=== PATIENT | female | born 1995 | race Caucasian/White ===

== ENCOUNTER 2022-04-24 19:08 | Emergency (ER) | payer MEDICAID, SELFPAY ==
[2022-04-24 19:08] VITALS: BP 128/78; PULSE 98; RESP 16; TEMP 36.6; O2SAT 99; BMI 23.0
--- NOTE | 2022-04-24 19:32 | US_ITS ---
EXAM: US PELVIS TRANSVAGINAL AND US DUPLEX ARTERIAL/VENOUS OF THE PELVIS, COMPLETE CLINICAL INDICATION: LLQ PAIN TECHNIQUE: Transvaginal pelvic ultrasound was performed with grayscale imaging. Transvaginal imaging was used for better evaluation of the endometrium and adnexa. Real-time duplex ultrasound scan of the arterial and venous flow of the pelvis with color Doppler flow and spectral waveform analysis. This report was created using [employer] report generation technology. COMPARISON: None. FINDINGS: UTERUS/CERVIX: Unremarkable. Anteverted. There is no uterine mass. The uterus measures 8.9 x 3.5 x 5.3 cm. The endometrial stripe measures 0.9 cm in thickness. RIGHT OVARY: Unremarkable. There is normal arterial inflow and venous outflow present in the right ovary. The right ovary measures 4.0 x 2.0 x 1.9 cm. LEFT OVARY: Collapsing follicle measuring 2.3 cm left ovary. There is normal arterial inflow and venous outflow present in the left ovary. The left ovary measures 4.0 x 2.7 x 3.1 cm. FREE FLUID: None. BLADDER: Empty bladder which cannot be evaluated with this probe. US/Transvaginal Non- IMPRESSION: Collapsing follicle measuring 2.3 cm left ovary. Electronically Signed: Tony Varghese MD at 21:16 EDT ,
--- NOTE | 2022-04-24 19:33 | EDS_ITS ---
HPI HPI - Female History of Present Illness Chief Complaint: Abd Pain Detail of Chief Complaint: Pelvic and suprapubic pain. Informant: patient Pain Pain: Positive for Pelvic Pain Onset: Today, Yesterday and Days Context: Gradual Onset Timing: Intermittent Quality: Positive for Cramping Current Severity: Mild Maximum Severity: Mild Bleeding Issue: Negative for Vaginal bleeding, Passing clots or Passing tissue Associated Symptoms Associated Symptoms: Negative for Dysuria, Frequency, Urgency, Hematuria, Missed Period or Irregular Period Test: Positive P: 3 Ab: 1 Narrative Narrative: 26-year-old female G4, P3 Ab1 with having a miscarriage. There is no past medical history. Prior C-sections. No significant abdominal or pelvic surgeries. States that since Thursday she has had intermittent pelvic and s uprapubic pain. Denies any other symptoms. No nausea, vomiting or diarrhea. No fever or chills. No dysuria. No vaginal bleeding or discharge. Her last menstrual period was April and prior to that it was the first week of March. She has never had an ovarian cyst but they run in her family according to her. Prior similar symptoms: No Recent Illness/Hospitalization: No PFSH PFSH Medical History no medical history no medical history Home Medications loratadine-pseudoephedrine ER 10 mg-240 mg tablet,extended [id number] (Claritin-D 24 Hour) tab PO 04/24/22 [History Last Taken Unknown] Allergy/AdvReac Type Severity Reaction Status Date / Time No Known Allergies Allergy Verified 04/24/22 19:10 Social History Smoking Status: Never smoker ROS ROS ED ROS Narrative Pelvic pain Review of Systems ROS Unobtainable: Denies due to encephalopathy Constitutional Constitutional ED: Denies chills Eyes Eyes: Denies blurry vision ENT ENT ED: Denies ear pain Cardiovascular Cardiovascular: Denies chest pain Gastrointestinal Gastrointestinal: Reports abdominal pain Genitourinary Genitourinary ED: Denies dysuria Musculoskeletal Musculoskeletal: Denies arthralgias Integumentary Denies abscess Neurologic Neurologic: Denies headache(s) Psychiatric Psychiatric: Denies anxiety Endocrine Endocrinology: Denies heat intolerance Hematologic/Lymphatic Hematologic/Lymphatic: Denies easy bleeding Allergic/Immunologic Allergic/Immunologic ED: Denies mouth swelling EXAM Physical Exam Narrative Exam Narrative: 26-year-old female no acute distress. Vital signs stable afebrile. HEENT exam normal. Lungs are clear. Heart regular rhythm. Abdomen soft nondistended normal bowel sounds no peritoneal signs. Suprapubic tenderness. Back nontender. Moving all 4 extremities. Neurologic exam normal. Const Vital Signs: 04/24/22 19:08 04/24/22 21:39 Temperature 97.8 F 97.7 F L Temperature Source Temporal Temporal Pulse Rate 98 Respiratory Rate 16 15 Blood Pressure 128/78 H 122/74 H Blood Pressure Mean 94 90 Pulse Ox 99 97 Oxygen Delivery Method Room Air Positive well nourished and well developed; Negative for obese, cachectic, contractures or unkempt General Appearance ED: well developed; Negative for unkempt, cachectic or contractures Nutritional Appearance: Negative for cachectic or obese HEENT Reports moist mucous membranes Negative for trauma or tenderness Eyes PERRL and EOMs intact bilaterally General Eye ED: Negative for pale conjunctiva Neck no lymphadenopathy, supple and no JVD Thyroid: Negative for tender Lymph Lymphatic: Negative for other Chest Wall inspection of chest normal and palpation of chest normal Resp normal respiratory effort and clear to auscultation bilaterally Effort and Inspection: Negative for pain with movement Auscultation: Negative for rales, rhonchi or wheezes Cardio regular rate, regular rhythm, S1 normal heart sound, no murmurs and no JVD Rate: Negative for bradycardia Rhythm: Negative for abnormal rhythm GI normal to inspection, nondistended, normoactive bowel sounds, soft to palpation, non-distended and no masses; Negative for non-tender Auscultation: normoactive bowel sounds Palpation: tender; Negative for guarding, rigid, hepatomegaly, splenomegaly or mass Back/Spine no CVA tenderness General Back: Negative for CVA tenderness Cervical Spine: Negative for cervical spine tenderness Thoracic Spine / Upper Back: Negative for thoracic spinal tenderness Lumbar Spine / Lower Back: Negative for lumbar spinal tenderness Sacrum: Negative for other Extremity normal to inspection and full ROM General Extremety ED: Negative for edema General Extremity: Negative for edema Neuro oriented x3 Sensorium / Orientation: alert and oriented to person; Negative for oriented to place, oriented to time, confused, lethargic or stuporous Motor Exam: strength 5/5 throughout Psych mental status grossly normal Appearance: Negative for unkempt Attitude: No agitated Speech: No other Mood & Affect: Negative for depressed Skin no rashes or lesions noted and no wounds General Skin Exam: Negative for jaundice Rashes: No rashes noted Trauma: Negative for other MDM MDM MDM Narrative Medical decision making narrative: 26-year-old female with pelvic pain. Exam benign. Urinalysis and urine test will be obtained. Clinically unable to get a UTI. I think unlikely she is with a last menstrual period 2 weeks ago. It may be an ovarian cyst. Ultrasound being obtained. She is not having any bleeding or discharge at home think she needs a pelvic exam at this time. She did not want anything for pain. Repeat exam patient doing well at 10:45 PM. Abdomen is benign. No hernia. She and I discussed her test results. She will be discharged to home. She recently moved up here from another part of the [facility] and she will be referred to a primary care physician if not improving for further evaluation. Lab Data Attestation: I reviewed the patient's lab results. Lab results narrative: Urinalysis negative no infection no white cells or nitrates. negative. Ultrasound showed a collapsing follicle on the left at 2.3 cm. Labs: Laboratory Results - last 24 hr 04/24/22 19:30 Urine Color Straw Urine Clarity Clear Urine pH 6.5 Ur Specific Tebbetts 1.010 Urine Protein Negative Urine Glucose (UA) Normal Urine Ketones Negative Urine Occult Blood Negative Urine Nitrite Negative Urine Bilirubin Negative Urine Urobilinogen Normal Ur Leukocyte Esterase Negative Urine RBC 0 SEEN Urine WBC 0-5 SEEN Ur Squamous Epith Cells 0 SEEN Urine Bacteria 1+ Urine Mucus 0 SEEN Urine Test Negative Radiography Diagnostic Testing: Clinical Impression(s) from Imaging Studies Transvaginal US 04/24/22 19:32 IMPRESSION: Collapsing follicle measuring 2.3 cm left ovary. Electronically Signed: Tony Varghese MD at 21:16 EDT , Discharge Plan Triage Chief Complaint: Abd Pain ED Provider: Wilfredo Kebede Dx/Rx/DC Orders Clinical Impression: Pelvic pain Instructions: ED Pelvic Pain, Unknown Cause Prescriptions: No Action loratadine-pseudoephedrine [Claritin-D 24 Hour] 10-240 mg Tablet Extended Release 24 Hr PO Primary Care Provider: [facility],Out of Referrals: Emely French MD [STAFF PHYSICIAN] - 10-14 Days if not better [facility],Out of [Primary Care Provider] - Activity Restrictions/Additional Instructions: Follow-up with a local [facility] if your pain is not improving. Your labs and ultrasound were unremarkable tonight. You are not . Your urine is noninfected. Your ultrasound did not show anything bad. Motrin and Tylenol for pain. Disposition Disposition: Home, Self Care
[2022-04-24 19:44] LABS: Mucous, Urine 0 SEEN /hpf (<or=2+); Red Blood Cells-Urine 0 SEEN /hpf (0-5); Squamous Epithelial Cells - UA 0 SEEN /hpf (5-10)
[2022-04-24 19:48] LABS: Color, Urine Straw (Yellow); Glucose, Dipstick Normal (Normal); Ketone-Dipstick Negative (Negative); Leukocyte Esterase-Dipstick Negative /ul (Negative); Nitrite-Dipstick Negative (Negative); Occult Blood-Urine Negative /ul (Negative); Protein-Dipstick Negative (Negative); Urine Bilirubin Dipstick Negative (Negative); Urine Clarity Clear (Clear); Urine Urobilinogen Normal (Normal); Urine pH 6.5 (5.0 - 8.0)
[2022-04-24 19:53] LABS: Internal QC Validated? YES +Cl - CLEAR BKGD; Pregnancy, Urine Negative Negative
[2022-04-24 20:10] LABS: Bacteria 1+ /hpf (None Seen); White Blood Cells 0-5 SEEN /hpf (0-5)
[2022-04-24 21:39] VITALS: BP 122/74; RESP 15; TEMP 36.5; O2SAT 97
== END 2022-04-24 22:50 | disposition home or self-care (01) ==
PROVIDERS: Emergency Provider Emergency Medicine; Visit Provider Emergency Medicine
DX: R10.2 Pelvic and perineal pain (principal)
CPT/HCPCS: 76830; 81001; 81025; 93976; 99282; A4216

== ENCOUNTER 2022-07-03 10:41 | Emergency (ER) | payer MEDICAID, SELFPAY ==
[2022-07-03 10:42] VITALS: BP 117/73; PULSE 84; RESP 18; TEMP 36.8; O2SAT 99; BMI 28.3
--- NOTE | 2022-07-03 11:13 | ED.VIS.FEGU ---
HPI HPI - Female History of Present Illness Chief Complaint: Narrative Narrative: 26-year-old G7, P3 presents because of ectopic . She states that she had a miscarriage with her 6th on May 29, approximately 1 month ago. She denies any current vaginal bleeding, but states that and follow-up with Dr. Otero, her FUNDING COORDINATOR, they noticed that she had an elevated quantitative beta-hCG. It was reported that it was elevated in the 3000, then went up to 5000. She was having pelvic cramping yesterday so she reported to an outside facility, where they could not perform ultrasound in the evening so they scheduled her for 1 today. It was reported that on the ultrasound there is an ectopic on the left. They contacted Dr. Barrera who is aware of the patient coming to the emergency department for further treatment. Patient states no lab work was performed at the outside facility. She denies any fevers or chills, no pelvic cramping or vaginal bleeding. [facility] Medical History Depression Home Medications loratadine-pseudoephedrine ER 10 mg-240 mg tablet,extended [id number] (Claritin-D 24 Hour) tab PO 04/24/22 [History Last Taken Unknown] Allergy/AdvReac Type Severity Reaction Status Date / Time No Known Allergies Allergy Verified 07/03/22 10:42 Surgical History History of Social History Smoking Status: Former smoker ROS ROS ED ROS Narrative Constitutional: No fever, no chills. HEENT: No sore throat. No neck pain. No loss of vision. No rhinorrhea. Cardiovascular: No chest pain. No palpitations. No pedal edema. Respiratory: No cough, no shortness of breath. Abdominal: No abdominal pain. No nausea. No vomiting. Genitourinary: No dysuria. No hematuria. No pelvic cramping currently, no vaginal bleeding. Musculoskeletal: No myalgias. No arthralgias. Neurologic: No headaches. No dizziness. No lightheadedness. Skin: No rash. No change in color. Psychiatric: No depression. No anxiety. EXAM Physical Exam Narrative Exam Narrative: Afebrile. Vital signs noted. HEENT: Normocephalic. Atraumatic. PERRL, EOMI. Neck soft and supple. No point tenderness or step off. Cardiovascular: Regular rate and rhythm. No murmurs, rubs, or gallops appreciated. Respiratory: No tachypnea. Lungs clear to auscultation bilaterally. Gastrointestinal: Abdomen soft, nontender, with normoactive bowel sounds. No rebound or guarding. Neurological: Awake. Alert. Nonfocal, nonlateralizing. Skin: No rash. Normal color. No pallor. Musculoskeletal: No pedal edema. Full range of motion extremities. Const Vital Signs: 07/03/22 10:42 07/03/22 12:17 07/03/22 14:07 Temperature 98.2 F Temperature Source Temporal Pulse Rate 84 88 83 Respiratory Rate 18 16 16 Blood Pressure 117/73 Blood Pressure Mean 87 Pulse Ox 99 100 100 Oxygen Delivery Method Room Air Room Air Room Air MDM MDM MDM Narrative Medical decision making narrative: In discussion with the FUNDING COORDINATOR, she would like lab work drawn in the form of CBC, CMP, and quantitative beta-hCG. Patient states that her blood type is a positive but this was drawn for confirmatory testing. CBC shows normal white count of 7.1, hemoglobin normal at 12.3 with hematocrit 38.2. Platelet count normal at 208. CMP is grossly unremarkable. hCG quantitative is elevated at 5475. Blood type is confirmed and a positive. Dr. Dasilva did evaluate the patient in the emergency department and would like the patient rescanned with transvaginal ultrasound. Her ultrasound has returned with concern for ectopic with gestational sac and pole possibly at the isthmus of the left fallopian tube. Dr. Dasilva states that she has already discussed methotrexate therapy versus surgery with the patient. As she is stable, she would be appropriate for methotrexate therapy and she had been informed that she may require additional dosing of it for her ectopic . In discussion with the patient, she states that she would like what ever would allow her to be discharged sooner. She was agreeable for methotrexate therapy. I rediscussed the patient with FUNDING COORDINATOR to see when the patient should follow-up. They state that an RN will contact her for laboratory work and for close follow-up appointment most likely within the next week. Patient did have a headache so she was administered Tylenol. At this point in time, I feel she can be discharged safely home with close follow-up to FUNDING COORDINATOR for her ectopic . Disposition is discharged home in stable condition. Lab Data Attestation: I reviewed the patient's lab results. Labs: Laboratory Results - last 24 hr 07/03/22 07/03/22 07/03/22 11:19 11:19 11:19 WBC 7.1 RBC 4.11 L Hgb 12.3 Hct 38.2 MCV 92.9 MCH 29.9 MCHC 32.2 RDW Std Deviation 42.2 RDW Coeff of Femi 12.4 Plt Count 208 MPV 10.1 Immature Gran % (Auto) 0.600 Neut % (Auto) 57.5 Lymph % (Auto) 32.5 [place] % (Auto) 5.7 Eos % (Auto) 3.1 Baso % (Auto) 0.6 Absolute Neuts (auto) 4.1 Absolute Lymphs (auto) 2.32 Nucleated RBC % 0 Sodium 140 Potassium 3.9 Chloride 106 Carbon Dioxide 29.0 Anion Gap 5 BUN 6 L Creatinine 0.67 Estim Creat Clear Calc 105.26 Est GFR (MDRD) Af Amer 136 Est GFR (MDRD) Non-Af 112 BUN/Creatinine Ratio 9.0 L Glucose 92 Calcium 9.1 Total Bilirubin 0.50 AST 8 L ALT 16 Alkaline Phosphatase 61 Total Protein 7.2 Albumin 3.9 Globulin 3.3 Albumin/Globulin Ratio 1.2 HCG, Quant 5475 H Blood Type 07/03/22 11:19 WBC RBC Hgb Hct MCV MCH MCHC RDW Std Deviation RDW Coeff of Femi Plt Count MPV Immature Gran % (Auto) Neut % (Auto) Lymph % (Auto) [place] % (Auto) Eos % (Auto) Baso % (Auto) Absolute Neuts (auto) Absolute Lymphs (auto) Nucleated RBC % Sodium Potassium Chloride Carbon Dioxide Anion Gap BUN Creatinine Estim Creat Clear Calc Est GFR (MDRD) Af Amer Est GFR (MDRD) Non-Af BUN/Creatinine Ratio Glucose Calcium Total Bilirubin AST ALT Alkaline Phosphatase Total Protein Albumin Globulin Albumin/Globulin Ratio HCG, Quant Blood Type A POSITIVE Radiography Diagnostic Testing: Clinical Impression(s) from Imaging Studies Obstetrics Ultrasound 07/03/22 12:28 IMPRESSION: 1. Findings concerning for left adnexal ectopic with appearance of gestational sac and pole possibly at the isthmus of the fallopian tube., Recommend gynecologic consultation for further assessment management. Electronically Signed: Michael GutierresDO at 14:34 EDT , ADDENDUM: 07/03/22 1509 IMPRESSION: 1. Findings concerning for left adnexal ectopic with appearance of gestational sac and pole possibly at the isthmus of the fallopian tube., Recommend gynecologic consultation for further assessment management. Electronically Signed: Michael Gutierres at 15:02 EDT , Discharge Plan Triage Chief Complaint: ED Provider: Samir Leach Dx/Rx/DC Orders Clinical Impression: Ectopic , Pelvic cramping Instructions: ED Methotrexate for Ectopic ... Prescriptions: No Action loratadine-pseudoephedrine [Claritin-D 24 Hour] 10-240 mg Tablet Extended Release 24 Hr PO Primary Care Provider: Feliciano Pagan Referrals: Lolly Dasilva DO [Med Staff - Active Staff] - 3-5 Days [facility],Out of [Non-Staff] - Activity Restrictions/Additional Instructions: Dr. Dasilva will be having her nurse contact you regarding follow-up appointment and schedule for laboratory work to ensure that your beta hCG quantitative measurements are decreasing. If you have not been contacted by Thursday, please call the office. Return with any increased pain, fever, new or worsening symptoms. It is important that you follow-up with FUNDING COORDINATOR because you may need an additional dose of methotrexate. Disposition Disposition: Home, Self Care
[2022-07-03 11:36] LABS: Absolute Lymphocyte Count 2.32 X10^3/uL (0.83-4.51); Absolute Neutrophil Count 4.1 X10^3/uL (2.0-7.7); Basophil# 0.04 X10^3/uL; Basophil% 0.6 % (0-1); Eosinophil# 0.22 X10^3/uL; Eosinophils% 3.1 % (0-5); Hematocrit 38.2 % (37-47); Hemoglobin 12.3 g/dL (12.0-15.0); Lymphocyte # 2.32 X10^3/ul (0.83-4.51); Lymphocyte % 32.5 % (19-41); Mean Corp Hgb Conc 32.2 g/dL (32-36); Mean Corpuscular Hgb 29.9 pg (27.0-32.0); Mean Corpuscular Volume 92.9 fL (81-99); Mean Platelet Vol. 10.1 fl (6.2-12.0); Monocyte# 0.41 X10^3/uL; Monocyte% 5.7 % (0-10); NRBC Flagged by Analyzer 0 % (0-5); Neutrophil # 4.11 X10^3/uL (2.7-7.7); Neutrophil % 57.5 % (47-70); Platelet Count 208 K/mm3 (150-450); RBC Distribution Width CV 12.4 % (11.6-14.6); RBC Distribution Width SD 42.2 fl (35.1-43.9); Red Blood Count 4.11 M/mm3 (4.2-5.4); White Blood Count 7.1 K/mm3 (4.4-11.0)
[2022-07-03 11:52] LABS: ALB/GLOB Ratio 1.2 RATIO (0.9-2.4); AST(SGOT) 8 U/L (15-37); Alanine Aminotransfer ALT/SGPT 16 U/L (13-56); Albumin, Serum 3.9 g/dL (3.2-5.0); Alkaline Phosphatase 61 U/L (45-117); Anion Gap 5 (5-15); BUN 6 mg/dL (7-18); Calcium,Total 9.1 mg/dL (8.5-10.1); Chloride 106 mmol/L (98-107); Creatinine, Serum 0.67 mg/dL (0.55-1.02); EST Glomerular Filtration Rate 112 mL/min (>60); Est Glom Filt Rate - Afr Amer 136 mL/min (>60); Estimated Creatinine Clearance 105.26 ml/min; Globulin 3.3 g/dL (2.2-4.2); Glucose 92 mg/dL (74-106); Potassium 3.9 mmol/L (3.5-5.1); Protein, Total 7.2 g/dL (6.4-8.2); Sodium Level 140 mmol/L (136-145)
[2022-07-03 12:17] VITALS: PULSE 88; RESP 16; O2SAT 100
--- NOTE | 2022-07-03 12:28 | US_ITS ---
STUDY: FIRST TRIMESTER OBSTETRICAL ULTRASOUND REASON FOR EXAM: Female, 26 years old pelvic cramping with -- positive quant -- diagnosed with ectopic at outside facility previous . LMP: Unknown. TECHNIQUE: Transvaginal TECHNICAL QUALITY: Adequate. PRIOR ULTRASOUND: None. FINDINGS: There is visualization of a single gestational sac in a normal intrauterine position. Adjacent to the left uterus possibly located at the isthmus of the fallopian tube is a hypoechoic oval structure measuring 1.6 x 1.9 x 2.3 cm with central anechoic region and possible pole with crown-rump length measuring 0.29 cm corresponding to 6 weeks 1 day. Region demonstrates circumferential color DOPPLER flow. The uterus measures 8.9 x 5.0 cm.. There is no demonstrated uterine fibroid. The cervix is closed. The right ovary measures 2.5 x 2.9 x 1.7 cm. There is no right ovarian cyst. There is no visualized right adnexal mass or complex lesion. The left ovary measures 3.1 x 2.6 x 2.1 cm. There is no left ovarian cyst. There is no visualized left adnexal mass or complex lesion. There is no fluid in the cul de sac. US/Transvaginal w/Preg US IMPRESSION: 1. Findings concerning for left adnexal ectopic with appearance of gestational sac and pole possibly at the isthmus of the fallopian tube., Recommend gynecologic consultation for further assessment management. Electronically Signed: Michael Gutierres DO at 14:34 EDT ,
[2022-07-03 12:36] LABS: hCG Titer Quant., Serum 5475 mIU/mL (1-3)
[2022-07-03 14:07] VITALS: PULSE 83; RESP 16; O2SAT 100
--- NOTE | 2022-07-03 15:16 | CON.PCM_ITS ---
Assessment & Plan Assessment/Plan (1) Ectopic : PLAN: Repeat HCG quant ~5,400. HCG quant was inappropriately rising, and now ronal teaued. Pelvic ultrasound likely ectopic in left fallopian tube measuring < 3 cm in size and no heart beat detected. No free fluid in pelvic ultrasound. Patient is asymptomatic today and HDS. Abdominal exam is benign and non tender. Discussed non viable with patient and likely ectopic . Discussed r/b of medical management with methotrexate vs surgical intervention. Discussed that given HCG quant level, higher change of needing repeat doses of the methotrexate and higher chance of failure. Discussed laparoscopic removal of ectopic , with possible salpingectomy and possible oophorectomy. Patient declines surgery at this time. She desires to proceed with methotrexate, and understands reasons to call and importance of follow up. Will give 1 dose in ER. RN in office contacted patient to have her get repeat HCG quants on days 4 and 7. She is scheduled for follow up with me next week as well. HPI Consult Data Date of Consult: 07/03/22 HPI Narrative Reason for Consultation: ectopic HPI Narrative: BLANCA REDMAN, is a 26 F who presents from [facility] with likely ectopic pre gnancy. The patient has been seen in our office for early . She reports 2 weeks ago having an [facility] showing either an irregular intra uterine GS or fluid inside the uterus. She then had a visit about [address] Otero and at that time ultrasound showed fluid within the uterus. HCG quants ~3000 > ~5000. She reports she had a menstrual cramp early this morning, which has resolved, but that it was prompted her to seek evaluation. Currently she is asymptomatic. She denies pain, cramping, bleeding. She feels well. At [facility] no blood work was completed. Pelvic US was concerning for left sided ectopic . [facility] Medical History Depression Home Medications loratadine-pseudoephedrine ER 10 mg-240 mg tablet,extended [id number] (Claritin-D 24 Hour) tab PO 04/24/22 [History Last Taken Unknown] Allergy/AdvReac Type Severity Reaction Status Date / Time No Known Allergies Allergy Verified 07/03/22 10:42 Surgical History History of Social History Smoking Status: Former smoker Physical Exam Const alert and no apparent distress General Appearance: comfortable HEENT normocephalic Resp normal respiratory effort GI soft to palpation, non-tender and non-distended GI Narrative: No rebounding, no guarding, no rigidity Lab / Micro Data Result Diagrams: 07/03/22 11:19 07/03/22 11:19 Labs: Laboratory Results - last 24 hr 07/03/22 11:19: WBC 7.1, RBC 4.11 L, Hgb 12.3, Hct 38.2, MCV 92.9, MCH 29.9, MCHC 32.2, RDW Std Deviation 42.2, RDW Coeff of Femi 12.4, Plt Count 208, MPV 10.1, Immature Gran % (Auto) 0.600, Neut % (Auto) 57.5, Lymph % (Auto) 32.5, [place] % (Auto) 5.7, Eos % (Auto) 3.1, Baso % (Auto) 0.6, Absolute Neuts (auto) 4.1, Absolute Lymphs (auto) 2.32, Nucleated RBC % 0 07/03/22 11:19: Sodium 140, Potassium 3.9, Chloride 106, Carbon Dioxide 29.0, Anion Gap 5, BUN 6 L, Creatinine 0.67, Estim Creat Clear Calc 105.26, Est GFR (MDRD) Af Amer 136, Est GFR (MDRD) Non-Af 112, BUN/Creatinine Ratio 9.0 L, Glucose 92, Calcium 9.1, Total Bilirubin 0.50, AST 8 L, ALT 16, Alkaline Phosphatase 61, Total Protein 7.2, Albumin 3.9, Globulin 3.3, Albumin/Globulin Ratio 1.2 07/03/22 11:19: HCG, Quant 5475 H 07/03/22 11:19: Blood Type A POSITIVE Radiology Impression Obstetrics Ultrasound 07/03/22 12:28 IMPRESSION: 1. Findings concerning for left adnexal ectopic with appearance of gestational sac and pole possibly at the isthmus of the fallopian tube., Recommend gynecologic consultation for further assessment management. Electronically Signed: Michael Gutierres DO at 14:34 EDT , ADDENDUM: 07/03/22 1509 IMPRESSION: 1. Findings concerning for left adnexal ectopic with appearance of gestational sac and pole possibly at the isthmus of the fallopian tube., Recommend gynecologic consultation for further assessment management. Electronically Signed: Michael Gutierres DO at 15:02 EDT ,
[2022-07-03] MEDS: Acetaminophen 325 MG Tablet 650 MG PO (15:21)
== END 2022-07-03 16:42 | disposition home or self-care (01) ==
PROVIDERS: Emergency Provider Emergency Medicine; Visit Provider Emergency Medicine
DX: O00.102 Left tubal pregnancy without intrauterine pregnancy (principal); O08.89 Other complications following an ectopic and molar pregnancy; R10.2 Pelvic and perineal pain; Z87.891 Personal history of nicotine dependence
CPT/HCPCS: 76817; 80053; 84702; 85025; 86900; 86901; 99284; A4216; J9250

== ENCOUNTER → 2022-07-06 | Outpatient (CLI) | payer MEDICAID, SELFPAY ==
[2022-07-06 12:33] LABS: hCG Titer Quant., Serum 4909 mIU/mL (1-3)
== END | disposition home or self-care (01) ==
LOC: LAB.FUTURE 11:22
PROVIDERS: Visit Provider Obstetrics & Gynecology
DX: O00.102 Left tubal pregnancy without intrauterine pregnancy (principal)
CPT/HCPCS: 36415; 84702

== ENCOUNTER → 2022-07-09 | Outpatient (CLI) | payer MEDICAID, SELFPAY ==
[2022-07-09 16:12] LABS: hCG Titer Quant., Serum 4776 mIU/mL (1-3)
== END | disposition home or self-care (01) ==
LOC: LAB 14:40
PROVIDERS: Visit Provider Obstetrics & Gynecology
DX: O00.102 Left tubal pregnancy without intrauterine pregnancy (principal)
CPT/HCPCS: 36415; 84702